=== PATIENT | male | born 1980 | race Caucasian/White ===

== ENCOUNTER 2020-06-25 10:24 | Emergency (ER) | payer OTHER, SELFPAY ==
[2020-06-25 10:40] VITALS: BP 114/87; PULSE 72; RESP 16; TEMP 36.3; O2SAT 99
--- NOTE | 2020-06-25 10:43 | ED.EYEPROB ---
HPI - Eye Problem General Chief complaint: Skin/Abscess/Foreign Body Stated complaint: swollen right eye Time Seen by Provider: 06/25/20 10:43 Source: patient and RN notes reviewed Mode of arrival: ambulatory Limitations: no limitations History of Present Illness HPI Narrative: This is a 39 years old male presented office for evaluation of poison sylvie on his eye. Onset a few days ago when he was cutting down some bushes and burnt them. He first noticed it on his left arm and has continued to spread to his front torso and left corner of his eye. Denies lip swelling, difficulty breathing, or tongue swelling. He has been taking Benadryl and tried topical anti-itchy cream with no relief. He works for a [employer] department and one of the ER doc wrote him a steroid script but he has not filled it yet. He prefers a shot since po steroid made him anxious/jitty; but not the shot. TD is up to date. Related Data Home Medications Medication Instructions Recorded Confirmed atenolol 50 mg DAILY 06/25/20 06/25/20 citalopram 20 mg DAILY 06/25/20 06/25/20 simvastatin 20 mg DAILY 06/25/20 06/25/20 Allergies Allergy/AdvReac Type Severity Reaction Status Date / Time cephalexin [From Keflex] Allergy Dyspnea / Verified 06/25/20 10:45 SOB levofloxacin [From Levaquin] Allergy Dyspnea / Verified 06/25/20 10:45 SOB [facility] Past Medical History Medical History Anxiety and depression Cardiac arrhythmia HLD (hyperlipidemia) HTN (hypertension) Social History Social History Gender identity (if verbalized by the patient): Male Comments At time of signature, I agree with nursing past medical, surgical, social and family history. There is no relevant family history pertinent to the presenting complaint. Exam Narrative: Exam Narrative: GENERAL: This is a well-nourished, well-developed patient, in no apparent distress. EYES: PERRL. EMOI. Sclera clear/white. Vision is grossly intact. Left corner of eye noted group of erythema, vesicular lesions. EARS: External ears normal, auditory canals clear and without drainage, TMs normal without perforation. Hearing grossly intact. NOSE: External nose normal with no obvious nasal discharge, nares without redness, no rhinorrhea. THROAT: Mucous membranes moist, posterior pharynx clear. NECK: Neck supple, non-tender without lymphadenopathy, masses or thyromegaly. CARDIOVASCULAR: Regular rate and rhythm without murmurs, gallops, or rubs. RESPIRATORY: Clear to auscultation. Breath sounds equal bilaterally. No wheezes, rales, or rhonchi. GASTROINTESTINAL: Abdomen soft, non-tender, nondistended. Bowel sounds are active. No hepato-splenomegaly, or palpable masses. No guarding. SKIN: front torso note scatter vesicular to macular erythema lesions, left anterior forearm noted linear streak erythema macular lesions, left axillary noted patchy of erythema with a group of vesicular lesions. NO rash on lower extremities or back. NEURO: awake, alert, and oriented to person, place and time. There were no obvious focal neurologic abnormalities. Steady gait EXTREMITIES: Normal range of motion. No edema. [place] Coma Scale Eye Opening: Spontaneous 4 [place] Coma Scale Motor: Obeys Commands 6 [place] Coma Scale Verbal: Oriented 5 Course Vital Signs Vital signs: Vital Signs Temperature 97.3 F L 06/25/20 10:40 Pulse Rate 72 06/25/20 10:40 Respiratory Rate 16 06/25/20 10:40 Blood Pressure 114/87 06/25/20 10:40 Pulse Oximetry 99 06/25/20 10:40 Temperature 97.3 F L 06/25/20 10:40 Pulse Rate 72 06/25/20 10:40 Respiratory Rate 16 06/25/20 10:40 Blood Pressure 114/87 06/25/20 10:40 Pulse Oximetry 99 06/25/20 10:40 MDM - Eye Problem MDM Narrative Medical decision making narrative: Discharge instructions reviewed with patient, as well as provided in writing per nursing staff.
[2020-06-25] MEDS: methylPREDNISolone ACETATE 40 MG/ML VIAL 80 MG IM (11:01)
== END 2020-06-25 11:21 | disposition home or self-care (01) ==
PROVIDERS: Emergency Provider Nurse Practitioner; PCP Internal Medicine Endocrinology, Diabetes & Metabolism
DX: L25.9 Unspecified contact dermatitis, unspecified cause (principal); F41.9 Anxiety disorder, unspecified; F32.9 Major depressive disorder, single episode, unspecified; E78.5 Hyperlipidemia, unspecified; I10 Essential (primary) hypertension
CPT/HCPCS: 96372; 99203; G0463; J1030

== ENCOUNTER 2021-03-04 09:07 | Emergency (ER) | payer OTHER, SELFPAY ==
--- NOTE | ~2021-03-04 | XR_ITS ---
XR foot LT min 3V DATE: 03/04/2021 09:34 INDICATION: Medial foot pain after rolling ankle and foot last night TECHNIQUE: 4 views COMPARISON: 03/04/2021 left ankle FINDINGS: Os tibiale externum, normal anatomic variant. No fracture, dislocation, periosteal reaction or bone destruction. IMPRESSION: No fracture or dislocation Reviewed, dictated and finalized at location A. IMPRESSION: No fracture or dislocation
--- NOTE | ~2021-03-04 | XR_ITS ---
EXAMINATION: XR ankle LT min 3V DATE: 03/04/2021 09:34 INDICATION: Medial left foot and ankle pain TECHNIQUE: 1. Anteroposterior, mortise, additional oblique and lateral view of the left ankle were obtained. 2. Dorsoplantar, two oblique and lateral views of the left foot were obtained. COMPARISON: None. FINDINGS: Alignment of the foot and ankle is normal. Normal variant type II os naviculare with irregular cortic ated margins along the synchondrosis. Mild overlying soft tissue swelling at the medial aspect of the midfoot. No fracture or osteochondral lesion. Joint spaces are well maintained. Bone islands at the talus. No ankle joint effusion. IMPRESSION: 1. Soft tissue swelling overlying a type II accessory os naviculare which given the provided history of medial pain post injury suggests an avulsive injury along the synchondrosis. No acute fracture. Reviewed, dictated and finalized at location A. IMPRESSION: 1. Soft tissue swelling overlying a type II accessory os naviculare which given the provided history of medial pain post injury suggests an avulsive injury al tal the synchondrosis. No acute fracture.
[2021-03-04 09:17] VITALS: BP 115/78; PULSE 62; RESP 16; TEMP 36.3; O2SAT 99
--- NOTE | 2021-03-04 09:41 | ED.LOWEXIN ---
HPI - Extremity Injury (Lower) General Chief Complaint: Extremity Injury, Lower Stated Complaint: left foot pain Time Seen by Provider: 03/04/21 09:40 Source: patient and RN notes reviewed Mode of arrival: ambulatory Limitations: no limitations History of Present Illness HPI Narrative: 40-year-old male presents with concern for left foot and ankle pain and swelling. Reports last night he rolled his ankle while playing Frisbee. Reports pain at rest, worsening pain with weightbearing. Reports pain 8/10 when putting weight on a flat foot. He denies any decreased strength, sensation, range of motion, reports pain with range of motion. MD complaint: ankle injury and foot injury Related Data Home Medications Medication Instructions Recorded Confirmed atenolol 50 mg DAILY 06/25/20 06/25/20 citalopram 20 mg DAILY 06/25/20 06/25/20 simvastatin 20 mg DAILY 06/25/20 06/25/20 Allergies Allergy/AdvReac Type Severity Reaction Status Date / Time cephalexin [From Keflex] Allergy Dyspnea / Verified 03/04/21 09:48 SOB levofloxacin [From Levaquin] Allergy Dyspnea / Verified 03/04/21 09:48 SOB Review of Systems Review of Systems: Narrative: CONSTITUTIONAL: Denies malaise, chills, sweats, or fever. SKIN: Denies abrasion, laceration MUSCULOSKELETAL: Reports left foot and ankle swelling, pain NEUROLOGIC: Denies numbness, weakness All systems reviewed & are unremarkable except as noted in HPI and below PMFSH Past Medical History Medical History (Updated 03/04/21 @ 09:50 by Mackenzie Zepeda NP) Anxiety and depression Cardiac arrhythmia HLD (hyperlipidemia) HTN (hypertension) Social History Social History Gender identity (if verbalized by the patient): Male Comments At time of signature, agree with nursing past medical, surgical, social and family history. There is no relevant family history pertinent to the presenting complaint Exam Narrative: Exam Narrative: GENERAL: Well-appearing, well-nourished, and in no acute distress. HEAD: Normocephalic, atraumatic. EYES: PERRLA, conjunctivae clear NECK: Supple. CHEST: Speaks in full sentences. No respiratory distress. HEART: Regular rate and rhythm. Normal and equal peripheral pulses. EXTREMITIES: Left ankle, foot, digits of foot have normal strength and sensation, normal range of motion. Mild medial foot edema, mild ecchymosis. 5/5 strength with ankle and digit flexion and extension. Normal sensation with sensitivity to light touch and pain. Medial foot tenderness. No open wounds, no skin tenting, no devitalized tissue or atrophy, no trophic changes, no obvious deformity, alignment normal, nearby joints and structures intact. Distal pulses palpable and equal bilaterally, skin warm, dry, pink. Capillary refill less than 3 seconds. SKIN: Warm, dry, no rash. NEURO: Alert and oriented x3. PSYCH: Normal mood and affect Course Course Emergency Course: Patient is aware of diagnosis, understands and agrees to treatment plan. Anticipatory guidance given. Patient agrees to follow-up as directed and is aware of reasons to seek care at the emergency department. Portions of this record may have been created with voice recognition software Vital Signs Vital signs: Vital Signs Temperature 97.3 F L 03/04/21 09:17 Pulse Rate 62 03/04/21 09:17 Respiratory Rate 16 03/04/21 09:17 Blood Pressure 115/78 03/04/21 09:17 Pulse Oximetry 99 03/04/21 09:17 Temperature 97.3 F L 03/04/21 09:17 Pulse Rate 62 03/04/21 09:17 Respiratory Rate 16 03/04/21 09:17 Blood Pressure 115/78 03/04/21 09:17 Pulse Oximetry 99 03/04/21 09:17 Reviewed. MDM - Extremity Injury (Lower) MDM Narrative Medical decision making narrative: Patients injury and pain is consistent with musculoskeletal etiology. No signs of neurological or vascular compromise on exam. Compartments and tissues are soft without signs of compartment
== END 2021-03-04 10:00 | disposition home or self-care (01) ==
PROVIDERS: Emergency Provider Nurse Practitioner
DX: S99.912A Unspecified injury of left ankle, initial encounter (principal); X50.9XXA Other and unspecified overexertion or strenuous movements or postures, initial encounter; F41.9 Anxiety disorder, unspecified; F32.9 Major depressive disorder, single episode, unspecified; E78.5 Hyperlipidemia, unspecified; I10 Essential (primary) hypertension
CPT/HCPCS: 73610; 73630; 99213; G0463

== ENCOUNTER 2023-11-18 08:43 | Emergency (ER) | payer OTHER, SELFPAY ==
--- NOTE | ~2023-11-18 | US_ITS ---
EXAMINATION: US right upper quadrant DATE: 11/18/2023 09:48 INDICATION: Abdominal pain with nausea TECHNIQUE: Multiple grayscale and Doppler ultrasound images of the abdomen were obtained. COMPARISON: None FINDINGS: The pancreatic head and body are normal in appearance. The pancreatic tail is not visualized. Liver has normal echogenicity and contour, with a smooth surface. No liver lesion identified. No intrahepat ic biliary duct dilation suspected. Portal venous flow was seen in the hepatopetal, normal direction and has normal Doppler waveform. The visualized proximal to mid inferior vena cava is normal. The gal lbladder is normal in appearance. There is no cholelithiasis. The common bile duct measures 3 mm, wh ich is normal. Sonographic Eli sign was reported as negative by the fruit or nut grower. IMPRESSION: 1. Normal right upper quadrant ultrasound. Reviewed, dictated and finalized at location A. INE STAMPER
--- NOTE | ~2023-11-18 | XR_ITS ---
XR chest 2V DATE: 11/18/2023 09:30 INDICATION: Intermittent mid chest pain since yesterday. Nausea. TECHNIQUE: PA and lateral views COMPARISON: None FINDINGS: Azygos lobe, normal variant. No pulmonary infiltrate or consolidation, pleural effusion or pulmonary vascular congestion or pneumothorax. Normal heart size. No hilar or mediastinal enlargement. IMPRESSION: No active cardiopulmonary disease Reviewed, dictated and finalized at location L. E HISTORIAN
--- NOTE | 2023-11-18 08:44 | ECG_ITS ---
Measurements Intervals [place] Rate: 83 P: 64 MO: 169 QRS: 42 QRSD: 106 T: 47 QT: 372 QTc: 437 Interpretive Statements SINUS RHYTHM BASELINE ARTIFACT- I, II, III, AVR, AVL, AVF, V6 NORMAL ECG NO PREVIOUS ECG AVAILABLE FOR COMPARISON Electronically Signed On 11-18-2023 8:55:11 PROOFING MACHINE OPERATOR by Toni Eubanks D.O.
[2023-11-18 08:52] VITALS: BP 142/91; PULSE 73; RESP 14; TEMP 36.4; O2SAT 100
[2023-11-18 09:02] LABS: Basophils Percent Auto 0.6 % (0.2-1.2); Eosinophils Absolute Auto 0.1 K/mm3 (0-0.3); Hemoglobin 14.7 g/dL (14.0-18.0); Immature Granulocyte Absolute 0.01 K/mm3 (0.00-0.031); Immature Granulocyte Percent A 0.2 % (0-0.5); Lymphocytes Absolute Auto 1.73 K/mm3 (0.9-3.2); Lymphocytes Percent Auto 33.1 % (18.3-44.2); Mean Corpuscular HGB Conc 33.4 g/dl (32-36); Mean Corpuscular Hemoglobin 30.1 pg (26-34); Mean Corpuscular Volume 90.2 fl (80-100); Mean Platelet Volume 9.2 fl (7.4-10.4); Monocytes Absolute Auto 0.5 K/mm3 (0.1-0.6); Monocytes Percent Auto 9.8 % (2.6-8.5); Neutrophils Absolute Auto 2.9 K/mm3 (1.3-6.7); Neutrophils Percent Auto 55.3 % (45.5-73.1); Platelet Count Result 196 k/mm3 (150-375); Red Blood Count 4.88 M/mm3 (4.6-6.20); White Blood Count 5.2 K/mm3 (4.5-10.0)
[2023-11-18 09:13] LABS: Alanine Aminotransferase 38 U/L (6-50); Albumin Level 4.6 g/dL (3.5-5.1); Alkaline Phosphatase 78 U/L (38-126); Anion Gap 9 mmol/L (8-16); Aspartate Amino Transferase 35 U/L (17-59); Bilirubin,Total 0.7 mg/dL (0.2-1.3); Blood Urea Nitrogen 14 mg/dL (9-20); Calcium 9.3 mg/dL (8.4-10.2); Carbon Dioxide 25 mmol/L (22-30); Chloride 105 mmol/L (98-107); Estimated CRCL calculation 110 ml/min; Estimated Glomerular Filt Rate > 60; Glucose 128 mg/dL (65-110); Lipase 174 U/L (23-300); Potassium 3.6 mmol/L (3.4-5.0); Sodium 139 mmol/L (137-145)
[2023-11-18 09:14] LABS: INR 0.9; Prothrombin Time 12.5 Seconds (11.1-14.7)
[2023-11-18 09:18] VITALS: PULSE 59
[2023-11-18] MEDS: ASPIRIN 81 MG CHEWABLE TABLET 324 MG PO (09:18)
[2023-11-18 09:25] LABS: Troponin I < 0.012 ng/mL (0.000-0.034)
[2023-11-18] MEDS: MECLIZINE HCL 25 MG TABLET PO (09:58)
--- NOTE | 2023-11-18 11:41 | ECG_ITS ---
Measurements Intervals [place] Rate: 53 P: 53 [place]: 179 QRS: 32 QRSD: 98 T: 35 QT: 401 QTc: 378 Interpretive Statements SINUS BRADYCARDIA BORDERLINE ECG COMPARED TO ECG 11/18/2023 08:48:24 SINUS BRADYCARDIA NOW PRESENT Electronically Signed On 11-18-2023 12:25:20 ABLE BODIED WATCHMAN by Toni Eubanks D.O.
[2023-11-18 11:42] VITALS: BP 139/90; PULSE 57; RESP 16; O2SAT 99
[2023-11-18 12:20] LABS: Troponin I < 0.012 ng/mL (0.000-0.034)
--- NOTE | 2023-11-18 12:31 | ED.GENADULT ---
HPI - General Adult General Chief complaint: Chest Pain Stated complaint: chest pain Time Seen by Provider: 11/18/23 08:57 History of Present Illness HPI narrative: Patient is a 43-year-old male who presents ER with concerns for chest pain. Intermittent over the last 10 days. [place]. Initially thought was heartburn and was taking Tums and improved. It has gone for a couple of days and returned over last 2 days. It will last for several seconds. He will have pressure in the center of his chest and he will then developed dizziness and nausea. Is not necessarily associated with eating or drinking. symptoms returned this morning around 810 while taking his son to the bus stop. patient does have history of untreated hypercholesterolemia. He also reports yesterday he did a 4 mi run on his treadmill without any chest discomfort. Related Data Home Medications Medication Instructions Recorded Confirmed atenolol 50 mg tablet 50 mg DAILY 06/25/20 03/10/21 citalopram 20 mg tablet 20 mg DAILY 06/25/20 03/10/21 simvastatin 40 mg tablet 20 mg DAILY 06/25/20 03/10/21 Allergies Allergy/AdvReac Type Severity Reaction Status Date / Time cephalexin [From Keflex] Allergy Dyspnea / Verified 11/18/23 08:55 SOB levofloxacin [From Levaquin] Allergy Dyspnea / Verified 11/18/23 08:55 SOB Review of Systems Review of Systems: All systems reviewed & are unremarkable except as noted in HPI and below Constitutional: Constitutional: Reports no additional constitutional complaints ENT: Reports dizziness, Reports nasal congestion and Reports sore throat Cardiovascular: Cardiovascular: Reports chest pain, Denies rapid heart rate and Denies radiating jaw, neck or arm pain Respiratory: Respiratory: Reports no additional respiratory complaints Gastrointestinal: Gastrointestinal: Denies abdominal pain, Reports heartburn, Denies diarrhea, Reports nausea and Denies vomiting Musculoskeletal: Musculoskeletal: Reports no additional musculoskeletal complaints [facility] Past Medical History Medical History (Updated 11/18/23 @ 12:44 by Jeancarlos Lopez MD) Anxiety and depression Cardiac arrhythmia HLD (hyperlipidemia) HTN (hypertension) Surgical History Surgical History (Updated 03/11/21 @ 09:12 by Josie Falk) History of wisdom tooth extraction Family History Family History (Updated 03/11/21 @ 09:14 by Josie Falk) Other High cholesterol Hypertension Social History Social History (Updated 03/11/21 @ 09:37 by Josie Falk) Smoking packs per day: 0.5 Smoking cigarettes per day: 10.0 Years smoked: 10 Smoking pack-years: 5.00 Smoking status: Current every day smoker Alcohol intake: current Drinks per week: 7 Substance use: never Occupation/Education: occupation Additional occupation/education comments: [employer] Gender identity (if verbalized by the patient): Male Exam Narrative: GENERAL: Well-appearing, well-nourished, and in no acute distress. HEAD: Normocephalic, atraumatic. ENT: Mucous membranes moist. TMs normal bilaterally. NECK: Supple. CHEST: Clear to auscultation. No respiratory distress. HEART: Regular rate and rhythm. No murmur heard. Normal peripheral pulses. ABDOMEN: Soft, nontender, nondistended. EXTREMITIES: Normal range of motion. No edema. SKIN: Warm, dry, no rash. NEURO: Alert and oriented x3. Reproducible dizziness with going from lying to sitting. PSYCH: Normal mood and affect. Course Course Emergency Course: Dizziness improved with meclizine. No gallstones on ultrasound. Troponin negative x2. Recommend follow-up with PCP, meclizine as needed, daily famotidine, and nausea medicine as needed. Vital Signs Vital signs: Vital Signs Temperature 97.5 F L 11/18/23 08:52 Pulse Rate 73 11/18/23 08:52 Respiratory Rate 14 11/18/23 08:52 Blood Pressure 142/91 H 11/18/23 08:52 Pulse Oximetry 100 11/18/23 08:52 Oxygen Del
== END 2023-11-18 12:01 | disposition home or self-care (01) ==
PROVIDERS: Emergency Provider Emergency Medicine
DX: R07.89 Other chest pain (principal); R42 Dizziness and giddiness; I10 Essential (primary) hypertension; E78.5 Hyperlipidemia, unspecified; F41.9 Anxiety disorder, unspecified; F32.A Depression, unspecified; F17.210 Nicotine dependence, cigarettes, uncomplicated; R00.1 Bradycardia, unspecified
CPT/HCPCS: 36415; 71046; 76705; 80053; 83690; 84484; 85025; 85610; 85730; 93005; 99284; A9270

== ENCOUNTER 2024-04-21 23:08 | Observation (INO) | payer OTHER, SELFPAY ==
--- NOTE | ~2024-04-21 | CT_ITS ---
CT abdomen pelvis wo con Ordering provider: Jeancarlos Lopez MD History: . right flank pain . Comparison: None. Technique: CT abdomen without IV and without oral contrast. Radiation reduction technique utilized. Findings: VISUALIZED LOWER CHEST: Normal. UPPER ABDOMINAL ORGANS: Liver: Normal. Gallbladder: Normal. Spleen: Normal. Stomach/duodenum: Normal. Pancreas: Normal. Adrenals: Normal. Kidneys: 5 mm Stone in the right upper ureter with right hydronephrotic changes. Stone in the right k idney lower pole. Large left kidney upper pole cyst measuring 5.5 cm. Tiny stone in the left kidney. Bladder: Normal. VISUALIZED BOWEL AND MESENTERY: No evidence of diverticulitis. Normal appendix. The bowel is otherwis e normal. No free air or free fluid. No mesenteric lymphadenopathy. RETROPERITONEUM: Normal aorta. No retroperitoneal lymphadenopathy. MUSCULOSKELETAL: The superficial soft tissues are normal. Normal spine. IMPRESSION: Stone in the right upper ureter with right hydronephrotic changes. Right renal stone. Cyst in the left kidney upper pole. Reviewed, dictated and finalized at location A.
--- NOTE | ~2024-04-21 | XR_ITS ---
EXAMINATION: XR retrograde pyelo w/stent RT DATE: 04/22/2024 10:37 INDICATION: Right internal ureteral stent placement TECHNIQUE: Fluoroscopic images from a right internal ureteral stent placement are submitted for pa mojica 6 seconds of fluoroscopy time. 8 fluoroscopic images FINDINGS: There is a right double-J internal ureteral stent projecting in expected position, with proximal [place] loop at the level of the renal pelvis and distal loop in the pelvis within the bladder lumen. IMPRESSION: 1. Right internal ureteral stent placement. Please refer to real-time procedural findings for karolyn jay. Reviewed, dictated and finalized at location B. IMPRESSION: 1. Right internal ureteral stent placement. Please refer to real-time procedu ral findings for details.
[2024-04-21 23:13] VITALS: BP 148/98; PULSE 73; RESP 20; TEMP 36.6; O2SAT 100
[2024-04-21] MEDS: ONDANSETRON INJ 4 MG/2 ML VIAL IV PUSH (23:24)
[2024-04-21] MEDS: SODIUM CHLORIDE 0.9% IV 1,000 ML 999 ML IV CONT (23:24)
[2024-04-21] MEDS: MORPHINE SULFATE (*CRX) 4 MG/ML INJ IV PUSH (23:24)
[2024-04-21 23:25] LABS: Basophils Absolute Auto 0.1 K/mm3 (0.0-0.1); Eosinophils Absolute Auto 0.2 K/mm3 (0-0.3); Eosinophils Percent Auto 2.4 % (0-4.4); Hematocrit 40.7 % (42.0-52.0); Hemoglobin 14.2 g/dL (14.0-18.0); Immature Granulocyte Absolute 0.01 K/mm3 (0.00-0.031); Immature Granulocyte Percent A 0.1 % (0-0.5); Lymphocytes Absolute Auto 3.89 K/mm3 (0.9-3.2); Lymphocytes Percent Auto 55.8 % (18.3-44.2); Mean Corpuscular HGB Conc 34.9 g/dl (32-36); Mean Corpuscular Hemoglobin 31.1 pg (26-34); Mean Corpuscular Volume 89.1 fl (80-100); Mean Platelet Volume 9.1 fl (7.4-10.4); Monocytes Absolute Auto 0.4 K/mm3 (0.1-0.6); Monocytes Percent Auto 5.7 % (2.6-8.5); Neutrophils Absolute Auto 2.4 K/mm3 (1.3-6.7); Platelet Count Result 224 k/mm3 (150-375); Red Blood Count 4.57 M/mm3 (4.6-6.20); Red Cell Distribution Width 13.1 % (11.5-14.5)
[2024-04-21 23:35] LABS: Prothrombin Time 13.3 Seconds (11.1-14.7)
[2024-04-21 23:36] LABS: Partial Thromboplastin Time 27.9 Seconds (22.3-36.8)
--- NOTE | 2024-04-21 23:36 | ED.GENADULT ---
HPI - General Adult General Chief complaint: Urogenital-Male Stated complaint: flank pain Time Seen by Provider: 04/21/24 23:10 History of Present Illness HPI narrative: Patient is a 43-year-old male who presents ER with right-sided flank pain. Has history of hemorrhagic cyst and also has known kidney stones. He has been having hematuria irregularly at home for weeks. Tonight he was sitting by can fire and had had a beer when he developed sudden sharp right-sided flank pain. Tried taking [place] without improvement. Waxes and wanes in intensity. No urinary frequency urgency or dysuria. Denies urinary retention. No fevers or chills or sweats. He has not seen Urology. Related Data Home Medications Medication Instructions Recorded Confirmed atenolol 50 mg tablet 50 mg DAILY 06/25/20 03/10/21 citalopram 20 mg tablet 20 mg DAILY 06/25/20 03/10/21 simvastatin 40 mg tablet 20 mg DAILY 06/25/20 03/10/21 Allergies Allergy/AdvReac Type Severity Reaction Status Date / Time cephalexin [From Keflex] Allergy Dyspnea / Verified 04/21/24 23:17 SOB levofloxacin [From Levaquin] Allergy Dyspnea / Verified 04/21/24 23:17 SOB Review of Systems Review of Systems: All systems reviewed & are unremarkable except as noted in HPI and below Constitutional: Constitutional: Reports no additional constitutional complaints Cardiovascular: Cardiovascular: Reports no additional cardiovascular complaints Respiratory: Respiratory: Reports no additional respiratory complaints Gastrointestinal: Gastrointestinal: Reports no additional gastrointestinal complaints Genitourinary: Genitourinary: Reports hematuria, Denies oliguria, Denies dysuria and Denies urinary frequency Comments: Flank pain PMFSH Past Medical History Medical History (Updated 04/22/24 @ 02:25 by Jeancarlos Lopez MD) Anxiety and depression Cardiac arrhythmia HLD (hyperlipidemia) HTN (hypertension) Surgical History Surgical History (Updated 03/11/21 @ 09:12 by Josie Falk) History of wisdom tooth extraction Family History Family History (Updated 03/11/21 @ 09:14 by Josie Falk) Other High cholesterol Hypertension Social History Social History (Updated 03/11/21 @ 09:37 by Josie Falk) Smoking packs per day: 0.5 Smoking cigarettes per day: 10.0 Years smoked: 10 Smoking pack-years: 5.00 Smoking status: Current every day smoker Alcohol intake: current Drinks per week: 7 Substance use: never Occupation/Education: occupation Additional occupation/education comments: [employer] Gender identity (if verbalized by the patient): Male Exam Narrative: GENERAL: uncomfortable-appearing, well-nourished, and in no acute distress. HEAD: Normocephalic, atraumatic. ENT: Mucous membranes moist. CHEST: Clear to auscultation. No respiratory distress. HEART: Regular rate and rhythm. Normal peripheral pulses. ABDOMEN: Soft, nontender, nondistended. EXTREMITIES: Normal range of motion. No edema. SKIN: Warm, dry, no rash. NEURO: Alert and oriented x3. PSYCH: Normal mood and affect. Course Course Emergency Course: patient required morphine 8 mg and Dilaudid 1 mg pain control. Urology consulted. Admit for observation. NPO, strain all urine, hydrate. Vital Signs Vital signs: Vital Signs Temperature 97.8 F 04/21/24 23:13 Pulse Rate 73 04/21/24 23:13 Respiratory Rate 20 04/21/24 23:13 Blood Pressure 148/98 H 04/21/24 23:13 Pulse Oximetry 100 04/21/24 23:13 Oxygen Delivery Room Air 04/21/24 23:13 Temperature 97.8 F 04/21/24 23:13 Pulse Rate 51 L 04/22/24 01:55 Respiratory Rate 17 04/22/24 01:55 Blood Pressure 107/71 04/22/24 01:55 Pulse Oximetry 97 04/22/24 01:55 Oxygen Delivery Room Air 04/21/24 23:13 Medical Decision Making Vital Signs Vital Signs: Vital Signs Temperature 97.8 F 04/21/24 23:13 Pulse Rate 73 04/21/24 23:13 R
[2024-04-21 23:38] LABS: Bacteria Urine None Seen /hpf; Non Pathogenic Casts 0-2; RBC Urine >100 /hpf (0-2); Squamous Epithelial Cell Urine None Seen /hpf (Few)
[2024-04-21 23:38] LABS: Alanine Aminotransferase 21 U/L (6-50); Albumin Level 4.6 g/dL (3.5-5.1); Alkaline Phosphatase 65 U/L (38-126); Anion Gap 9 mmol/L (4-12); Aspartate Amino Transferase 25 U/L (17-59); Bilirubin,Total 0.5 mg/dL (0.2-1.3); Blood Urea Nitrogen 16 mg/dL (9-20); Calcium 9.4 mg/dL (8.4-10.2); Carbon Dioxide 24 mmol/L (22-30); Chloride 105 mmol/L (98-107); Estimated CRCL calculation 89 ml/min; Estimated Glomerular Filt Rate > 60; Glucose 91 mg/dL (65-110); Potassium 3.8 mmol/L (3.4-5.0); Sodium 138 mmol/L (137-145)
[2024-04-21 23:47] LABS: Appearance Urine Cloudy (Clear); Bilirubin Urine Negative (Negative); Blood Urine 3+ (Negative); Color Urine Red (Yellow); Glucose Urine UA Negative (Negative); Ketones Urine Negative (Negative); Leukocyte Esterase Ur Trace LEU/UL (Negative); Nitrate Urine Negative (Negative); Protein Urine 2+ mg/dL (Negative); Urobilinogen Urine 0.2 mg/dL (<2.0)
[2024-04-22] VITALS (21 sets, daily range): BP systolic 96–131; BP diastolic 50–88; PULSE 46–65; RESP 12–20; TEMP 36.2–37.1; O2SAT 93–100; BMI 25.1
[2024-04-22 00:08] LABS: Add Urine Microscopic? YES
[2024-04-22] MEDS: MORPHINE SULFATE (*CRX) 4 MG/ML INJ IV PUSH (00:26)
[2024-04-22] MEDS: PROMETHAZINE HCL 25 MG/ML AMPUL 12.5 MG IV PUSH (00:48)
[2024-04-22] MEDS: HYDROmorphone HCL INJ (*CRX) 1 MG/ML SYR IV PUSH ×3 (01:02→22:06)
[2024-04-22] MEDS: SODIUM CHLORIDE 0.9% IV 1,000 ML 125 ML IV CONT (01:52)
--- NOTE | 2024-04-22 02:33 | PC.NURSE ---
Attempted to call report, was on hold for 6 min and called back and was on hold for 2 minutes then was told RN will call back. machine boss aware.
[2024-04-22] MEDS: ONDANSETRON INJ 4 MG/2 ML VIAL IV PUSH (03:15)
--- NOTE | 2024-04-22 09:48 | PM.IMHP ---
H&P: HPI History of Present Illness Date/Time: 04/22/24 09:48 Chief Complaint: R Flank pain Narrative: Patient presents with R flank pain diagnosed with R proximal 5mm ureteral stone. Flank pain started last night, and presented to ED. Pain continued, and imaging showed a R 4-5mm proximal proximal ureteral stone. Denies fevers/chills. Vitals with no signs of obvious infection in ED but pain was intractable. Labs WBC 7, Cr wnl, UA with blood but no signs of infection. [facility] Past Medical History Medical History Anxiety and depression Cardiac arrhythmia HLD (hyperlipidemia) HTN (hypertension) Surgical History Surgical History History of wisdom tooth extraction Family History Family History Other High cholesterol Hypertension Social History Social History Smoking packs per day: 0.5 Smoking cigarettes per day: 10.0 Years smoked: 10 Smoking pack-years: 5.00 Smoking status: Current every day smoker Alcohol intake: current Drinks per week: 7 Substance use: never Do You Feel Safe in your Home?: Yes Lack of Transportation: No Lack of Food: Never True Current Housing: I Have Housing Concerned About Future Housing: No Difficulty Paying Gas/Electric Bills: No Difficulty Paying for Meds: No Currently Unemployed: No Education: Associate Degree Difficulty w/ Childcare or Family Care: No Occupation/Education: occupation 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 Gender identity (if verbalized by the patient): Male Spiritual care concerns: No Meds Home Medications and Allergies Home Medications Medication Instructions Recorded Confirmed Type atenolol 50 mg tablet 50 mg DAILY 06/25/20 04/22/24 History alprazolam 0.25 mg tablet 0.25 mg PO PRN 04/22/24 04/22/24 History Allergies Allergy/AdvReac Type Severity Reaction Status Date / Time cephalexin [From Keflex] Allergy Dyspnea / Verified 04/21/24 23:17 SOB levofloxacin [From Levaquin] Allergy Dyspnea / Verified 04/21/24 23:17 SOB Vital Signs Vital Signs - 24 hr 04/21/24 23:13 04/22/24 00:35 04/22/24 00:45 Temperature 36.6 C Pulse Rate 73 Respiratory Rate 20 Blood Pressure 148/98 H Pulse Oximetry 100 96 99 Oxygen Delivery Room Air 04/22/24 00:48 04/22/24 01:00 04/22/24 01:02 Temperature Pulse Rate 51 L Respiratory Rate 17 Blood Pressure 131/88 112/50 L Pulse Oximetry 98 96 96 Oxygen Delivery 04/22/24 01:55 04/22/24 02:39 04/22/24 03:00 Temperature 36.5 C Pulse Rate 51 L 63 61 Respiratory Rate 17 17 18 Blood Pressure 107/71 106/71 125/69 Pulse Oximetry 97 93 96 Oxygen Delivery 04/22/24 03:12 Temperature Pulse Rate 61 Respiratory Rate 18 Blood Pressure Pulse Oximetry 96 Oxygen Delivery Room Air Exam Narrative: Comfortable : Other: Mild R CVA tenderness H&P: Results Labs Labs: Short CBC 04/21/24 Range/Units 23:19 WBC 7.0 (4.5-10.0) K/mm3 Hgb 14.2 (14.0-18.0) g/dL Hct 40.7 L (42.0-52.0) % Plt Count 224 (150-375) k/mm3 BMP 04/21/24 23:19 Sodium 138 Potassium 3.8 Chloride 105 Carbon Dioxide 24 BUN 16 Creatinine 1.10 Glucose 91 Calcium 9.4 Liver Function 04/21/24 Range/Units 23:19 Total Bilirubin 0.5 (0.2-1.3) mg/dL AST 25 (17-59) U/L ALT 21 (6-50) U/L Alkaline Phosphatase 65 (38-126) U/L Albumin 4.6 (3.5-5.1) g/dL Urine 04/21/24 Range/Units 23:26 Urine Color Red H (Yellow) Urine Appearance Cloudy H (Clear) Urine pH 5.0 (5.0-9.0) Ur Specific [place] 1.010 (1.001-1.035) Urine Protein 2+ H (Negative) mg/dL Urine Glucose (UA) Negative (Negative) mg/dL Assessment and Plan Assessment and plan
--- NOTE | 2024-04-22 09:54 | WPDHPUPDATE1 ---
History and Physical Update Update Date/Time: 04/22/24 09:54 History and Physical has been reviewed, including an updated exam of the patient. There are NO changes in the patient's condition. Risks, benefits, and alternatives have been discussed and questions answered. Patient agrees to proceed with procedure.
--- NOTE | 2024-04-22 10:05 | PM.IMHP ---
H&P: HPI History of Present Illness Date/Time: 04/22/24 10:05 Chief Complaint: right flank pain Narrative: 43-year-old male with a PMHx: of anxiety, depression, cardiac arrhythmias, HLD, HTN as well as known history of kidney stones, and hemorrhagic cyst, reported to the emergency room via POV with complaints of ongoing hematuria and right flank pain for a few weeks, that abruptly became worse prior to his arrival. Pt reported sitting out by campfire, when he had one beer he suddenly developed share right flank pain,that was not controlled with p.o norco. He reported pain has sharp waxes and wanes. He denied any urinary frequency, dysuria or urinary retention.Mr. Alex denied any fever, chills, n/v upon arrival. Initial vitals: b/p 148/98, rr 20, PR73, sp02 100 % on RA T:97.8 ED workup revealed: Patient required 8 mg morphine, 1 mg Dilaudid to control pain during initial presentation, Urology was consulted, abdomen pelvis CT revealed stone in the right upper ureter with right hydronephrotic changes. Right renal stone, cyst in the left kidney upper pole. Patient was admitted for pain control and cystoscopy for right ureteral stent placement retrograde pyelogram. [facility] Past Medical History Medical History (Updated 04/22/24 @ 14:47 by Mahnaz Kay APRN) Anxiety and depression Cardiac arrhythmia HLD (hyperlipidemia) HTN (hypertension) Surgical History Surgical History History of wisdom tooth extraction Family History Family History Other High cholesterol Hypertension Social History Social History Smoking packs per day: 0.5 Smoking cigarettes per day: 10.0 Years smoked: 10 Smoking pack-years: 5.00 Smoking status: Current every day smoker Alcohol intake: current Drinks per week: 7 Substance use: never Do You Feel Safe in your Home?: Yes Lack of Transportation: No Lack of Food: Never True Current Housing: I Have Housing Concerned About Future Housing: No Difficulty Paying Gas/Electric Bills: No Difficulty Paying for Meds: No Currently Unemployed: No Education: Associate Degree Difficulty w/ Childcare or Family Care: No Occupation/Education: 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 Gender identity (if verbalized by the patient): Male Spiritual care concerns: No Meds Home Medications and Allergies Home Medications Medication Instructions Recorded Confirmed Type atenolol 50 mg tablet 50 mg DAILY 06/25/20 04/22/24 History alprazolam 0.25 mg tablet 0.25 mg PO PRN 04/22/24 04/22/24 History Allergies Allergy/AdvReac Type Severity Reaction Status Date / Time cephalexin [From Keflex] Allergy Dyspnea / Verified 04/21/24 23:17 SOB levofloxacin [From Levaquin] Allergy Dyspnea / Verified 04/21/24 23:17 SOB Vital Signs Vital Signs - 24 hr 04/21/24 23:13 04/22/24 00:35 04/22/24 00:45 Temperature 97.8 F Pulse Rate 73 Respiratory Rate 20 Blood Pressure 148/98 H Pulse Oximetry 100 96 99 Oxygen Delivery Room Air 04/22/24 00:48 04/22/24 01:00 04/22/24 01:02 Temperature Pulse Rate 51 L Respiratory Rate 17 Blood Pressure 131/88 112/50 L Pulse Oximetry 98 96 96 Oxygen Delivery 04/22/24 01:55 04/22/24 02:39 04/22/24 03:00 Temperature 97.7 F Pulse Rate 51 L 63 61 Respiratory Rate 17 17 18 Blood Pressure 107/71 106/71 125/69 Pulse Oximetry 97 93 96 Oxygen Delivery 04/22/24 03:12 Temperature Pulse Rate 61 Respiratory Rate 18 Blood Pressure Pulse Oximetry 96 Oxygen Delivery Room Air Exam Narrative: General: A well-developed, nontoxic-appearing gentlemen, lying in bed, very tired s/p: POD:0 Cystoscopy HEENT: PERRL, EOMI. Oral mucosa moist. Neck: Supple. No midline cervical tenderness. Respir
--- NOTE | 2024-04-22 10:05 | WPDANESEPPF ---
Anes - Initial Pre Proc Eval Procedure: Operation Date: 04/22/24 10:00 Proposed Procedures p Cysto, RPG, Stone Ext, Stent Placement(Right) - Jeannette Guzman MD Date/Time: 04/22/24 10:05 Surgeon: Perez Burris MD Pre Op Diagnosis: ureteral lithiasis Patient Data Age: 43 Gender: M Height: 1.85 m Weight: 86.3 kg Last Vital Signs Temp 36.5 C 04/22/24 03:00 Pulse 61 04/22/24 03:12 Resp 18 04/22/24 03:12 BP 125/69 04/22/24 03:00 Pulse Ox 96 04/22/24 03:12 O2 Del Method Room Air 04/22/24 03:12 Allergies Allergy/AdvReac Type Severity Reaction Status Date / Time cephalexin [From Keflex] Allergy Dyspnea / Verified 04/21/24 23:17 SOB levofloxacin [From Levaquin] Allergy Dyspnea / Verified 04/21/24 23:17 SOB Home Medications Medication Instructions Recorded Confirmed Type atenolol 50 mg tablet 50 mg DAILY 06/25/20 04/22/24 History alprazolam 0.25 mg tablet 0.25 mg PO PRN 04/22/24 04/22/24 History Laboratory Tests 04/21/24 04/21/24 23:19 23:26 WBC 7.0 K/mm3 (4.5-10.0) RBC 4.57 L M/mm3 (4.6-6.20) Hgb 14.2 g/dL (14.0-18.0) Hct 40.7 L % (42.0-52.0) MCV 89.1 fl (80-100) MCH 31.1 pg (26-34) MCHC 34.9 g/dl (32-36) RDW 13.1 % (11.5-14.5) Plt Count 224 k/mm3 (150-375) MPV 9.1 fl (7.4-10.4) Immature Gran % (Auto) 0.1 % (0-0.5) Neut % (Auto) 35.0 L % (45.5-73.1) Lymph % (Auto) 55.8 H % (18.3-44.2) [place] % (Auto) 5.7 % (2.6-8.5) Eos % (Auto) 2.4 % (0-4.4) Baso % (Auto) 1.0 % (0.2-1.2) Lymph # (Auto) 3.89 H K/mm3 (0.9-3.2) [place] # (Auto) 0.4 K/mm3 (0.1-0.6) Eos # (Auto) 0.2 K/mm3 (0-0.3) Baso # (Auto) 0.1 K/mm3 (0.0-0.1) Abs Immat Gran (auto) 0.01 K/mm3 (0.00-0.031) Absolute Neuts (auto) 2.4 K/mm3 (1.3-6.7) Absolute Nucleated RBC 0.000 K/mm3 (0.0-0.012) Nucleated RBC % 0.0 % (0.0-0.2) PT 13.3 Seconds (11.1-14.7) INR 1.0 APTT 27.9 Seconds (22.3-36.8) Sodium 138 mmol/L (137-145) Potassium 3.8 mmol/L (3.4-5.0) Chloride 105 mmol/L (98-107) Carbon Dioxide 24 mmol/L (22-30) Anion Gap 9 mmol/L (4-12) BUN 16 mg/dL (9-20) Creatinine 1.10 mg/dL (0.7-1.3) Estim Creat Clear Calc 89 ml/min Estimated GFR > 60 (59 - ) Glucose 91 mg/dL (65-110) Calcium 9.4 mg/dL (8.4-10.2) Total Bilirubin 0.5 mg/dL (0.2-1.3) AST 25 U/L (17-59) ALT 21 U/L (6-50) Alkaline Phosphatase 65 U/L (38-126) Total Protein 7.0 g/dL (6.3-8.2) Albumin 4.6 g/dL (3.5-5.1) Urine Color Red H (Yellow) Urine Appearance Cloudy H (Clear) Urine pH 5.0 (5.0-9.0) Ur Specific [place] 1.010 (1.001-1.035) Urine Protein 2+ H mg/dL (Negative) Urine Glucose (UA) Negative mg/dL (Negative) Urine Ketones Negative mg/dL (Negative) Ur Blood (Man) 3+ H (Negative) Urine Nitrate Negative (Negative) Urine Bilirubin Negative (Negative) Urine Urobilinogen 0.2 mg/dL (<2.0) Leukocyte Esterase Rfl Trace H PABLITO/UL (Negative) Urine RBC >100 H /hpf (0-2) Urine WBC 6-10 H /hpf (0-3) Ur Squamous Epith Cells None seen /hpf (Few) Urine Bacteria None seen /hpf Urine Casts 0-2 Patient hx anesthesia problems: none Family hx anesthesia problems: none Results Review: All pre-operative results and documents have been reviewed as part of the pre-operative evaluation. [facility] Past Medical History Medical History Anxiety and depression Cardiac arrhythmia HLD (hyperlipidemia) HTN (hypertension) Surgical History Surgical History (Reviewed 04/22/24 @ 10:06 b
[2024-04-22] MEDS: LIDOCAINE HCL 2% GEL UROJET 10 ML PKG MUCOUS MEM (10:35)
--- NOTE | 2024-04-22 10:39 | P.OP_ITS ---
Procedure Note - Detailed Date of Procedure 04/22/24 Pre-op Diagnosis Right ureteral stone Post-op Diagnosis Same Procedure Performed Cystoscopy, right ureteral stent placement, retrograde pyelogram, intraoperative interpretation of fluoroscopy of less than 60 min Surgeon Jeannette Guzman MD Anesthesia General Indications 43M with R obstructed proximal ureteral stone Findings R hydro noted; stent placed. Description of Procedure The patient was brought back to the operating theatre. After the induction of excellent anesthesia, a surgical time out was performed, and we verified the patient identification, site, laterality, and procedure. Patient received pre- operative antibiotics within 60 minutes of start time. The patient was placed in the dorsal lithotomy position. The genital area was prepped and draped in the usual, sterile fashion. We introduced a 22 Fr rigid cystoscope easily into the bladder. The urethra was noted to be unremarkable. The bladder was emptied. The scope was re-inserted. Brief pancystoscopy did not reveal any tumors, masses, stones, trabeculations, or diverticuli. The right ureteral orifice was identified and cannulated with 5 Fr open ended catheter. We did shoot a retrograde pyelogram adn mild hydronephrosis was noted.. A sensor guidewire was placed into the catheter and advanced to the renal pelvis using fluoroscopy. A 4.8F double-J stent was then placed under direct vision with a curl observed in the kidney and in the bladder. We did not leave a string on the stent. The bladder was emptied. The patient was then awoken without event, transferred to the recovery cart and transported to the PACU in good condition. Implants R 4.8F multilength double-J ureteral stent Estimated Blood Loss 0 Drains No Complications None Condition Stable Disposition Floor (Balance of care with primary team. ok for discharge from urology perspective this afternoon if feeling well. Plan to return to OR in 3-4 weeks or so for stent removal and stone removal. )
[2024-04-22] MEDS: LACTATED RINGERS 1,000 ML 30 ML IV CONT (10:40)
[2024-04-22] MEDS: atenoloL 50 MG TABLET BY MOUTH (15:58)
[2024-04-23 05:35] VITALS: BP 105/72; PULSE 57; RESP 16; TEMP 36.6; O2SAT 97
[2024-04-23 09:25] VITALS: PULSE 65
[2024-04-23] MEDS: atenoloL 50 MG TABLET BY MOUTH (09:25)
[2024-04-23 09:27] VITALS: BP 115/75; PULSE 65; RESP 14; O2SAT 100
--- NOTE | 2024-04-23 11:04 | PM.DS ---
DS: Admitting Diagnosis Discharge Date 04/23/2024 Admitting Diagnosis Calculus of ureter DS: Discharge Diagnosis Discharge Diagnosis (1) HTN (hypertension): Code(s): I10 - Essential (primary) hypertension Status: Acute (2) Calculus of proximal right ureter: Code(s): N20.1 - Calculus of ureter Status: Acute DS: Summary Hospital Course Reason for hospitalization: 43-year-old male with PMHx: of HTN, hyperlipidemia, anxiety and depression reported to the emergency room with complaint of ongoing right flank pain that abruptly started night before. Hospital Course: Initial vitals: b/p 148/98, rr 20, PR73, sp02 100 % on RA T:97.8 ED workup revealed: Patient required 8 mg morphine, 1 mg Dilaudid to control pain during initial presentation, Urology was consulted, abdomen pelvis CT revealed stone in the right upper ureter with right hydronephrotic changes. Right renal stone, cyst in the left kidney upper pole. Patient was admitted for pain control and cystoscopy for right ureteral stent placement retrograde pyelogram. Patient underwent Cystoscopy, for right ureteral stent placement, retrograde pyelogram, intraoperative interpretation of fluoroscopy of less than 60 min. Procedure notes: report that the retrograde pyelogram was successful/ uneventful.The patient was then awoken without event, transferred to the recovery cart and transported to the PACU in good condition. -patient was seen bedside s/p: Cystoscopy, he complained of ongoing pain, kept patient overnight for ongoing pain management and recovery. 04/23/2024: Patient seen this morning he denies any overnight events, he reports he was able to control his pain, reports mild to moderate discomfort with urination. He denies any bleeding,or discharge at this time. Pt is ready for discharge home. Status at Discharge Functional status at discharge: independent ambulation Overall status at discharge: patient is progressing back to baseline Time Spent with Patient Time attestation: Total time spent providing and/or coordinating discharge services: Time spent: Less than 30 minutes Exam Narrative: General: A well-developed, nontoxic-appearing gentlemen, sitting up in bed. HEENT: PERRL, EOMI. Oral mucosa moist. Neck: Supple. No midline cervical tenderness. Respiratory: Respirations are non- labored and lungs are clear to auscultation bilaterally. Cardiovascular: Regular rate and rhythm with S1-S2. Gastrointestinal: Abdomen is soft, non-tender, and non-distended with positive bowel sounds. Skin: Warm and dry. No rash or lesions on limited exam. Extremities: No cyanosis, clubbing, or edema. Radial and pedal pulses intact. Neurological: Alert and oriented. Cranial nerves 2-12 are grossly intact. No gross focal deficits to casual conversation. Psychiatric: Pleasant and cooperative with normal mood and affect. Judgment and insight intact. DS: Data Procedures/Treatments: Procedure Note - Detailed Date of Procedure 04/22/24 Pre-op Diagnosis Right ureteral stone Post-op Diagnosis Same Procedure Performed Cystoscopy, right ureteral stent placement, retrograde pyelogram, intraoperative interpretation of fluoroscopy of less than 60 min Surgeon Jeannette Guzman MD Anesthesia General Indications 43M with R obstructed proximal ureteral stone Findings R hydro noted; stent placed. Description of Procedure The patient was brought back to the operating theatre. After the induction of excellent anesthesia, a surgical time out was performed, and we verified the patient identification, site, laterality, and procedure. Patient received pre-operative antibiotics within 60 minutes of start time. The patient was placed in the dorsal lithotomy position. The genital area was prepped and draped in the usual, sterile fashion. We introduced a 22 Fr rigid cystoscope easily into the bladder. The urethra was noted to be unremarkable. The bladder was emptied. The scope wa
--- NOTE | 2024-04-23 11:33 | WPDANESPN ---
Anes - Prog Note Post-Op Date/Time: 04/23/24 11:33 Cardiovascular status: normal Respiratory status: normal Airway patency: baseline Mental status: baseline Post-Op hydration status: normal Vital Signs: Last Vital Signs Temp 36.6 C 04/23/24 05:35 Pulse 65 04/23/24 09:27 Resp 14 04/23/24 09:27 BP 115/75 04/23/24 09:27 Pulse Ox 100 04/23/24 09:27 O2 Del Method Room Air 04/23/24 09:30 O2 Flow Rate 6 04/22/24 10:55 Pain Score (VAS): 0/10 I/O: Intake & Output 04/22/24 04/23/24 04/23/24 23:59 07:59 15:59 Intake Total 444 1200 Output Total 1200 650 150 Balance -756 550 -150 Laboratory Tests 04/21/24 23:19 04/21/24 23:19 Microbiology 04/21/24 23:26 Urine Clean Catch Urine Culture - Final Post-procedural complaints: none Patient Feedback: Patient satisfied with anesthetic care.
--- NOTE | 2024-04-23 11:40 | WPDUROPN2 ---
Progress Note: A&P Assessment and Plan (1) Calculus of proximal right ureter: Code(s): N20.1 - Calculus of ureter Status: Acute Assessment and Plan: 43M with proximal R ureteral stone s/p R ureteral stent placement. - Doing well overall. Ok for d/c today. Rec flomax for stent discomfort if needed - Plan for return to OR with Dr. Biggs or partner for treatment of stone, and removal/exchange of stent in next few weeks. Patient understands plan. Time Spent With Patient Time: INcluding documentation, imaging, etc approx 30 min Subjective Subjective Date/Time Seen: 04/23/24 11:40 Interval history: s/p R ureteral stennt placement. Doing well, urinating clear urine. Exam : Other: Clear yellow urine in urinal. Objective Data Vital Signs Vital Signs: Vital Signs - 24 hr 04/22/24 12:00 04/22/24 12:15 04/22/24 12:45 Temperature 36.2 C L 36.4 C L 36.3 C L Pulse Rate 58 L 47 L 46 L Respiratory Rate 20 20 20 Blood Pressure 116/80 114/80 114/79 Pulse Oximetry 96 93 96 Oxygen Delivery 04/22/24 13:45 04/22/24 15:58 04/22/24 15:59 Temperature 36.7 C Pulse Rate 52 L 65 65 Respiratory Rate 18 14 Blood Pressure 104/60 118/60 Pulse Oximetry 95 100 Oxygen Delivery 04/22/24 21:05 04/23/24 05:35 04/23/24 09:25 Temperature 37.1 C 36.6 C Pulse Rate 58 L 57 L 65 Respiratory Rate 16 16 Blood Pressure 112/70 105/72 Pulse Oximetry 96 97 Oxygen Delivery 04/23/24 09:27 04/23/24 09:30 Temperature Pulse Rate 65 Respiratory Rate 14 Blood Pressure 115/75 Pulse Oximetry 100 Oxygen Delivery Room Air Intake/Output Intake/Output: Intake & Output 04/20/24 04/21/24 04/22/24 04/23/24 23:59 23:59 23:59 23:59 Intake Total 1794 1200 Output Total 1700 800 Balance 94 400 Meds/Results Medications: Active Medications Generic Name Dose Route Start Last Admin Trade Name Freq PRN Reason Stop Dose Admin Alprazolam 0.25 mg 04/22/24 15:20 Alprazolam (*Crx) 0.25 Mg Tablet PO Q6H PRN Anxiety Atenolol 50 mg 04/22/24 15:30 04/23/24 09:25 Atenolol 50 Mg Tablet BY MOUTH 50 mg DAILY GEOVANI Administration Hydromorphone HCl 1 mg 04/22/24 01:44 04/22/24 22:06 Hydromorphone Hcl Inj (*Crx) 1 Mg/Ml Syr IV PUSH 1 mg Q4H PRN Administration Pain Rated 7-10 Ondansetron HCl 4 mg 04/22/24 01:44 04/22/24 03:15 Ondansetron Inj 4 Mg/2 Ml Vial IV PUSH 4 mg Q4H PRN Administration Nausea Radiology Results: ITS Impressions Abdomen/Pelvis CT 04/22/24 00:02 IMPRESSION: Stone in the right upper ureter with right hydronephrotic changes. Right renal stone. Cyst in the left kidney upper pole. Retrograde Pyelogram 04/22/24 13:52 IMPRESSION: 1. Right internal ureteral stent placement. Please refer to real-time procedural findings for details.
== END 2024-04-23 11:50 | disposition home or self-care (01) ==
LOC: ANHED 23:49 → ANH3MEDSUR 04-22 02:18
PROVIDERS: Urology; Admitting Provider Family Medicine; Emergency Provider Emergency Medicine; Visit Provider Family Medicine
PROC: (CPT 52352; principal; 2024-04-22 10:00)
DX: N13.2 Hydronephrosis with renal and ureteral calculous obstruction (principal); I10 Essential (primary) hypertension; E78.5 Hyperlipidemia, unspecified; F41.8 Other specified anxiety disorders; F17.210 Nicotine dependence, cigarettes, uncomplicated
CPT/HCPCS: 52332; 36415; 74176; 74420; 80053; 81001; 85025; 85610; 85730; 87086; 96361; 96374; 96375; 96376; 99285; A9270; C1758; C2617; G0378; J1100; J1170; J1200; J2250; J2270; J2405; J2550; J2704; J3010; J7030; J7120; Q9966

== ENCOUNTER 2024-04-25 10:50 | Outpatient (CLI) | payer OTHER, SELFPAY ==
--- NOTE | ~2024-04-25 | XR_ITS ---
Supine and upright views of the abdomen Clinical history: Renal stone Findings: Bowel gas pattern is nonspecific. No evidence for obstruction or free air. Right ureteral s tent in place. Probable small pelvic phleboliths present. Probable 3 mm stone at the proximal uretera l stent region. Osseous structures are intact. Impression: Probable 3 mm stone adjacent to the proximal pigtail of the right ureteral stent. Reviewed, dictated and finalized at location . Impression: Probable 3 mm stone adjacent to the proximal pigtail of the right ureteral sten t.
== END 2024-04-25 10:51 | disposition home or self-care (01) ==
PROVIDERS: Visit Provider Urology
DX: N20.0 Calculus of kidney (principal)
CPT/HCPCS: 74018

== ENCOUNTER 2024-05-24 08:36 | Outpatient (CLI) | payer OTHER, SELFPAY ==
[2024-05-24 09:13] LABS: INR 0.9; Prothrombin Time 12.4 Seconds (11.1-14.7)
[2024-05-24 09:14] LABS: Partial Thromboplastin Time 26.6 Seconds (22.3-36.8)
[2024-05-24 09:41] LABS: Appearance Urine Clear (Clear); Bacteria Urine None Seen /hpf; Bilirubin Urine Negative (Negative); Blood Urine 3+ (Negative); Color Urine Yellow (Yellow); Glucose Urine UA Negative (Negative); Ketones Urine Negative (Negative); Leukocyte Esterase Ur Negative LEU/UL (Negative); Need Manual Microscopic Reviewed; Nitrate Urine Negative (Negative); Protein Urine 1+ mg/dL (Negative); RBC Urine 21-50 /hpf (0-2); Specific Grav Ur 1.011 (1.001-1.035); Spermatozoa Urine Present; Squamous Epithelial Cell Urine None Seen /hpf (Few); Urobilinogen Urine 0.2 mg/dL (<2.0); WBC Urine 0-5 /hpf (0-3)
[2024-05-24 09:43] LABS: Add Urine Microscopic? YES
== END 2024-05-24 08:37 | disposition home or self-care (01) ==
LOC: ANHSURGERY 08:40
PROVIDERS: Visit Provider Urology
DX: Z01.818 Encounter for other preprocedural examination (principal); N20.1 Calculus of ureter; N20.0 Calculus of kidney
CPT/HCPCS: 36415; 81001; 85610; 85730

== ENCOUNTER 2024-05-26 00:25 | Day surgery (SDC) | payer OTHER, SELFPAY ==
--- NOTE | 2024-05-17 07:35 | P.HP_ITS ---
History of Present Illness History of Present Illness Consent: Risks, benefits, and alternatives have been discussed and questions answered. Patient agrees to proceed with procedure. Chief complaint: Right Ureteral Stone Narrative: Pietro Alex is a 43 year old male With a history of recurrent urolithiasis admitted to [facility] on April 22 with an obstructing painful 5 mm calcified right proximal ureteral stone. My partner, Dr. Guzman, placed a right ureteral stent and now presents for definitive right ESWL. He is aware of the risks including, but not limited to, adverse cardiopulmonary events, hematuria, perinephric hematoma and need for additional procedures Review of Systems Review of Systems: All systems reviewed & are unremarkable except as noted in HPI and below PMFSH Past Medical History Medical History (System 04/25/24 @ 08:25 by Catrachito Castillo) Anxiety and depression Cardiac arrhythmia HLD (hyperlipidemia) HTN (hypertension) Surgical History Surgical History (System 04/25/24 @ 08:25 by Catrachito Castillo) History of wisdom tooth extraction Family History Family History Other High cholesterol Hypertension Social History Social History (System 04/25/24 @ 08:25 by Catrachito Castillo) Smoking packs per day: 0.5 Smoking cigarettes per day: 10.0 Years smoked: 10 Smoking pack-years: 5.00 Smoking status: Current every day smoker Alcohol intake: current Drinks per week: 7 Substance use: never Do You Feel Safe in your Home?: Yes Lack of Transportation: No Lack of Food: Never True Current Housing: I Have Housing Concerned About Future Housing: No Difficulty Paying Gas/Electric Bills: No Difficulty Paying for Meds: No Currently Unemployed: No Education: Associate Degree Difficulty w/ Childcare or Family Care: No Occupation/Education: occupation Additional occupation/education comments: [employer] Gender identity (if verbalized by the patient): Male Spiritual care concerns: No Meds Home Medications and Allergies Home Medications Medication Instructions Recorded Confirmed Type atenolol 50 mg tablet 50 mg DAILY 06/25/20 04/22/24 History alprazolam 0.25 mg tablet 0.25 mg PO PRN 04/22/24 04/22/24 History Allergies Allergy/AdvReac Type Severity Reaction Status Date / Time Cephalosporins Allergy Unknown CEPHALEXIN Verified 04/25/24 08:25 Quinolones Allergy Unknown Verified 04/25/24 08:25 cephalexin [From Keflex] Allergy Dyspnea / Verified 04/25/24 08:25 SOB levofloxacin [From Levaquin] Allergy Dyspnea / Verified 04/25/24 08:25 SOB Exam Const: General: no acute distress Resp: Effort & Inspection: normal respiratory effort GI: Inspection: non-distended GI Palp: No abdominal tenderness and No Guarding due to palpation present (GI) Auscultation: normal bowel sounds Assessment and Plan Assessment and plan (1) Calculus of proximal right ureter: Code(s): N20.1 - Calculus of ureter Status: Acute Assessment and Plan: * Cystoscopy, right ureteral stent removal, right ESWL
[2024-05-23 10:23] VITALS: BMI 25.0
--- NOTE | 2024-05-23 10:29 | PC.NURSE ---
Report to the Outpatient Waiting Room, entrance under the green pavilion located off [facility], at time _0900_ on date _[id number]_. Planned Procedure Time: _1100_. Time changes happen often and if your time is changed the preop area will call you the afternoon before. - You and your visitor will be asked to self-screen and do not enter if you have any COVID symptoms. - A mask is optional within the hospital at this time. Patients may have clear liquids (water, carbonated beverages, clear teas, apple juice) until 3 hours prior to surgery with a maximum of 20 ounces. - No food from midnight until time of surgery Take the following medications with a SIP of water the morning of surgery: __Metoprolol and if needed Alprazolam DO NOT STOP ANY OF YOUR OTHER PRESCRIPTION MEDICATIONS PRIOR TO SURGERY ?EXCEPT THE FOLLOWING Medications to discontinue per physician None Date to take last dose Please no make-up, nail persian, hairspray, perfume, deodorant, or body powder the day of surgery. No jewelry (including any body piercings) or valuables the day of surgery, leave them at home. Please take a shower or bath the night before, or the morning of, surgery with an antibacterial soap. Wear comfortable, loose fitting clothing. - Jewelry must be removed prior to entering the operating room. Rings and piercings that are not removed may be cut off. - The hospital will not accept responsibility for valuables. - Please leave all valuables, including medications, at home the day of surgery. If you are going home after surgery, a licensed driver guide must drive you home. - NO public transportation without another adult if you receive anesthesia. - We recommend that an adult stay with you for 24 hours following discharge. - We also recommend that you do not drive, make important decision, drink alcoholic beverages, or take any drugs that were not prescribed by your health care provider for at least 24 hours after your discharge time. Follow any additional instructions given to you from your surgeon. If you or anyone in your household have experienced Covid symptoms in the past week, please notify your surgeon or the nurse liaison at the phone number below for possible testing. Telephone instructions given to __Pietro__and asked if any additional questions and then verbalized understanding. Patient advised to call surgeon office or pre surgery nurse liaison [phone] if any additional questions.
--- NOTE | ~2024-05-26 | XR_ITS ---
XR abdomen/kub 1V 05/26/2024 08:48 Indication: Preop ESWL Procedure: KUB Comparison: 09/2024 Findings: There is a right renal stone unchanged from prior study. There is right internal ureteral s tent in expected position. There are pelvic phleboliths which are stable. Bowel gas pattern nonobstru ctive. No definite stones are identified in the expected course of the ureters. Impression: 1: Right nephrolithiasis stable. Possible additional stone adjacent to the proximal pigtail of the in ternal ureteral stent. Stable position to right internal ureteral stent. Reviewed, dictated and finalized at location B. Impression: 1: Right nephrolithiasis stable. Possible additional stone adjacent to the prox imal pigtail of the internal ureteral stent. Stable position to right internal ureteral stent.
--- NOTE | 2024-05-26 06:22 | WPDHPUPDATE1 ---
History and Physical Update Update Date/Time: 05/26/24 06:22 History and Physical has been reviewed, including an updated exam of the patient. There are NO changes in the patient's condition. Risks, benefits, and alternatives have been discussed and questions answered. Patient agrees to proceed with procedure.
--- NOTE | 2024-05-26 07:19 | WPDANESEPPF ---
Anes - Initial Pre Proc Eval Procedure: Operation Date: 05/26/24 10:00 Proposed Procedures p Right Extracorporeal Shock Wave Lithotripsy - Rodrick Biggs MD s Cystoscopy with Right Stent Removal - Rodrick Biggs MD Date/Time: 05/26/24 07:19 Surgeon: Rodrick Biggs MD Pre Op Diagnosis: Right Ureteral Stone Patient Data Age: 43 Gender: M Height: 1.85 m Weight: 86 kg Allergies Allergy/AdvReac Type Severity Reaction Status Date / Time cephalexin [From Keflex] Allergy Intermediate Dyspnea / Verified 05/26/24 08:58 SOB levofloxacin [From Levaquin] Allergy Intermediate Dyspnea / Verified 05/26/24 08:58 SOB Home Medications Medication Instructions Recorded Confirmed Type atenolol 50 mg tablet 50 mg PO DAILY 06/25/20 05/26/24 History alprazolam 0.25 mg tablet 0.25 mg PO PRN PRN Anxiety 04/22/24 05/23/24 History Patient hx anesthesia problems: none Family hx anesthesia problems: none Results Review: All pre-operative results and documents have been reviewed as part of the pre-operative evaluation. [facility] Past Medical History Medical History (Updated 05/26/24 @ 09:13 by Maximo Chavez DO) Anxiety and depression HLD (hyperlipidemia) Surgical History Surgical History (System 04/25/24 @ 08:25 by Catrachito Castillo) History of wisdom tooth extraction Family History Family History Other High cholesterol Hypertension Social History Social History (System 04/25/24 @ 08:25 by Catrachito Castillo) Smoking packs per day: 0.5 Smoking cigarettes per day: 10.0 Years smoked: 15 Smoking pack-years: 7.50 Smoking status: Current every day smoker Tobacco type: cigarettes Alcohol intake: current Drinks per week: 5 Substance use: never Do You Feel Safe in your Home?: Yes Lack of Transportation: No Lack of Food: Never True Current Housing: I Have Housing Concerned About Future Housing: No Difficulty Paying Gas/Electric Bills: No Difficulty Paying for Meds: No Currently Unemployed: No Education: Associate Degree Difficulty w/ Childcare or Family Care: No Living arrangements: with family Occupation/Education: occupation Additional occupation/education comments: [employer] Gender identity (if verbalized by the patient): Male Spiritual care concerns: No Anes - Eval Final PreProcedure Day of Procedure 05/26/24 07:19 Patient weight: normal Heart: regular rate and rhythm Lungs: clear to auscultation Airway: Mallampati scale class II Neurological: alert and oriented Last oral intake: >/= 8 hours ASA classification: II Emergent: no Anesthetic plan: proceed Anesthesia type and monitoring: general LMA and standard monitoring Results Review: All pre-operative results and documents have been reviewed as part of the pre-operative evaluation. Informed Consent: The patient's anesthetic plan and its attendant risks and benefits were discussed with the patient/family/POA. Questions were solicited and answers provided to the satisfaction of the patient/family/POA.
[2024-05-26] MEDS: LACTATED RINGERS 1,000 ML 30 ML IV CONT (09:10)
[2024-05-26 09:25] VITALS: BP 120/90; PULSE 54; RESP 16; TEMP 36.4; O2SAT 100
[2024-05-26] MEDS: GENTAMICIN 80MG/SOD CHL 50 ML 80 MG/50 ML BAG 100 MG IVPB (09:44)
[2024-05-26] MEDS: LIDOCAINE HCL 2% GEL UROJET 10 ML PKG MUCOUS MEM (09:55)
--- NOTE | 2024-05-26 10:02 | W.PM.PROC2 ---
Procedure Note - Detailed Date of Procedure 05/26/24 Pre-op Diagnosis Right Renal Stone Post-op Diagnosis Same Procedure Performed Cystoscopy, right ureteral stent removal, right ESWL Surgeon Rodrick Biggs MD Anesthesia General Description of Procedure patient brought to the operative suite was prepped draped in routine sterile fashion while in a supine position after the uneventful induction of a general LMA anesthetic. Has an indwelling stent previously he previously had a 3 mm stone along the stent at the right UPJ and a 2nd stone in his right lower pole. Preoperative KUB failed to identify the UPJ stone and that was confirmed by careful fluoroscopy intraoperatively. Stone in pole with localized with the Lithotripter total of 2500 shocks were delivered at power setting of 4. Flexible cystoscopy was undertaken with a 16 F flexible cystoscope to remove his indwelling right ureteral stent. Minimal hyperplasia prostate and otherwise normal bladder. Drains No Packing No Pathology None sent Complications No immediate complications Condition Stable Disposition PACU
[2024-05-26 10:30] VITALS: BP 142/95; PULSE 55; RESP 20; O2SAT 99
[2024-05-26 10:45] VITALS: O2SAT 99
[2024-05-26 11:00] VITALS: BP 107/79; PULSE 60; RESP 16; O2SAT 99
[2024-05-26] MEDS: ONDANSETRON INJ 4 MG/2 ML VIAL IV PUSH (11:08)
[2024-05-26 11:20] VITALS: BP 115/75; PULSE 51; RESP 16; O2SAT 100
[2024-05-26 11:41] VITALS: BP 113/68; PULSE 55; RESP 16
== END 2024-05-26 11:47 | disposition home or self-care (01) ==
PROVIDERS: Visit Provider Urology
PROC: (CPT 50590; principal; 2024-05-26 10:00)
PROC: (CPT 52310; 2024-05-26 10:00)
DX: N20.1 Calculus of ureter (principal); I10 Essential (primary) hypertension; E78.5 Hyperlipidemia, unspecified; F41.8 Other specified anxiety disorders; F17.210 Nicotine dependence, cigarettes, uncomplicated
CPT/HCPCS: 50590; 52310; 36415; 74018; 81001; 85610; 85730; J1100; J1580; J2250; J2405; J2704; J3010; J7030; J7120